=== PATIENT | male | born 1955 | race Asian ===

== ENCOUNTER → 2017-06-04 | Outpatient (CLI) | payer OTHER ==
[~2017-06-04] MED LIST: AMLO5TAB2 PO; ASPI-496 PO; METF10002 PO; METO50TA82 PO; SIMV10TA PO
== END | disposition home or self-care (01) ==
LOC: CFH 08:05
PROVIDERS: ATTEND Internal Medicine Cardiovascular Disease
DX: Z02.9 Encounter for administrative examinations, unspecified (principal)